=== PATIENT | female | born 1975 | race Caucasian/White ===

== ENCOUNTER → 2020-10-31 | Outpatient (CLI) | payer BC | LOC: KOH-I 14:59 | DX: M79.672 Pain in left foot (principal) | CPT/HCPCS: 73630 ==

== ENCOUNTER → 2020-11-28 | Outpatient (CLI) | payer BC | LOC: KOH-I 14:47 | DX: S92.902A Unspecified fracture of left foot, initial encounter for closed fracture (principal) | CPT/HCPCS: 73630 ==

== ENCOUNTER → 2021-03-06 | Outpatient (CLI) | payer BC | LOC: MAMO 08:40 | DX: Z12.31 Encounter for screening mammogram for malignant neoplasm of breast (principal) | CPT/HCPCS: 77063; 77067 ==